=== PATIENT | female | born 1955 | race Caucasian/White ===

== ENCOUNTER 2022-03-02 14:45 | Inpatient (IN) | payer OTHER ==
[~2022-03-02] VITALS: Ht 157.5 cm; Wt 127.9 kg
[2022-03-02 16:05] LABS: HEMOGLOBIN 11.2 gm/dl (12.3-15.3); RED BLOOD COUNT 3.84 M/UL (4.00-5.10); WHITE BLOOD COUNT 4.6 K/UL (4.5-11.0)
[2022-03-02 16:30] LABS: BUN/CREATININE RATIO 22 (0-10)
[2022-03-03] MEDS ORDERED: AMLODIPINE BESYL5 MG PO (01:04)
[2022-03-03] MEDS ORDERED: INCRUSE ELLI62.5 MCG INH (01:04)
[2022-03-03] MEDS ORDERED: THEOPHYLLINE400 MG PO (01:05)
[2022-03-03] MEDS ORDERED: CETIRIZINE HCL10 MG PO (01:05)
[2022-03-03] MEDS ORDERED: METOPROLOL SUC100 MG PO (01:05)
[2022-03-03] MEDS ORDERED: MONTELUKAST SOD10 MG PO (01:06)
[2022-03-03] MEDS ORDERED: COZAAR 25MG TAB25 MG PO (01:06)
[2022-03-03] MEDS ORDERED: LEVOTHYROXINE137 MCG PO (01:07)
[2022-03-03] MEDS ORDERED: GABAPENTIN300 MG PO (01:07)
[2022-03-03] MEDS ORDERED: PROZAC 20 MG CA20 MG PO (01:08)
[2022-03-03] MEDS ORDERED: PRAVASTATIN SOD40 MG PO (01:08)
[2022-03-03] MEDS ORDERED: FENOFIBRATE160 MG PO (01:08)
[2022-03-03] MEDS ORDERED: OMEPRAZOLE40 MG PO (01:09)
[2022-03-03] MEDS ORDERED: IPRAT-ALBUT 0.5-3 ML INH (01:09)
[2022-03-03] MEDS ORDERED: NOVOLOG FL100 UNIT/1 SQ (01:10)
[2022-03-03] MEDS ORDERED: BASAGLAR K100 UNIT/1 SQ (01:10)
[2022-03-03] MEDS ORDERED: ADVAIR 500-501 EACH INH (01:11)
[2022-03-03] MEDS ORDERED: ASPIRIN CHEWABL81 MG PO (01:22)
[2022-03-03 05:44] LABS: HEMOGLOBIN 10.9 gm/dl (12.3-15.3); RED BLOOD COUNT 3.68 M/UL (4.00-5.10); WHITE BLOOD COUNT 4.4 K/UL (4.5-11.0)
[2022-03-03 06:22] LABS: BUN/CREATININE RATIO 20 (0-10)
[2022-03-04 02:06] LABS: HEMOGLOBIN 10.6 gm/dl (12.3-15.3); RED BLOOD COUNT 3.63 M/UL (4.00-5.10); WHITE BLOOD COUNT 4.3 K/UL (4.5-11.0)
[2022-03-04 02:25] LABS: BUN/CREATININE RATIO 27 (0-10)
[2022-03-06 01:54] LABS: RED BLOOD COUNT 4.16 M/UL (4.00-5.10); WHITE BLOOD COUNT 5.6 K/UL (4.5-11.0)
[2022-03-06] MEDS ORDERED: LASIX40 MG PO (16:44)
[2022-03-06] MEDS ORDERED: MEDROL DOSEPAK 24 MG PO (16:48)
== END 2022-03-06 19:57 | disposition home or self-care (01) | DRG 286 ==
LOC: ER1 14:45 → CDU 20:13 → CCU 20:13 → PROG CARE 20:13 → CCU 03-03 01:03 → PROG CARE 03-03 10:26
PROVIDERS: Internal Medicine; Physician Assistant; ADMIT Internal Medicine
PROC: 4A023N7 Measurement of Cardiac Sampling and Pressure, Left Heart, Percutaneous Approach (ICD-10-PCS; principal; 2022-03-06)
PROC: B2111ZZ Fluoroscopy of Multiple Coronary Arteries using Low Osmolar Contrast (ICD-10-PCS; 2022-03-06)
DX: I13.0 Hypertensive heart and chronic kidney disease with heart failure and stage 1 through stage 4 chronic kidney disease, or unspecified chronic kidney disease (principal); Z20.822 Contact with and (suspected) exposure to COVID-19; I50.33 Acute on chronic diastolic (congestive) heart failure; J96.21 Acute and chronic respiratory failure with hypoxia; J44.1 Chronic obstructive pulmonary disease with (acute) exacerbation; E66.2 Morbid (severe) obesity with alveolar hypoventilation; Z68.43 Body mass index [BMI] 50.0-59.9, adult; N18.9 Chronic kidney disease, unspecified; E11.22 Type 2 diabetes mellitus with diabetic chronic kidney disease; E78.5 Hyperlipidemia, unspecified; Z77.22 Contact with and (suspected) exposure to environmental tobacco smoke (acute) (chronic); I27.20 Pulmonary hypertension, unspecified; E03.9 Hypothyroidism, unspecified; D63.1 Anemia in chronic kidney disease; Z79.4 Long term (current) use of insulin; Z79.01 Long term (current) use of anticoagulants; Z79.82 Long term (current) use of aspirin; Z99.81 Dependence on supplemental oxygen; Z98.890 Other specified postprocedural states; Z82.49 Family history of ischemic heart disease and other diseases of the circulatory system; Z88.0 Allergy status to penicillin; Z90.49 Acquired absence of other specified parts of digestive tract
CPT/HCPCS: 36415; 71045; 78452; 80048; 80053; 82550; 82553; 82962; 83880; 84484; 85025; 85027; 86140; 93005; 93017; 94640; 94760; 99152; 99285; A9502; C1769; C1887; C1894; J1644; J1650; J1940; J2250; J2785; J2920; J3010; J7040; Q9967; U0002

== ENCOUNTER → 2022-06-20 | Outpatient (CLI) | payer OTHER ==
[~2022-06-20] MED LIST: ADVAIR 500-501 EACH INH; AMLODIPINE BESYL5 MG PO; ASPIRIN CHEWABL81 MG PO; BASAGLAR K100 UNIT/1 SQ; CETIRIZINE HCL10 MG PO; COZAAR 25MG TAB25 MG PO; FENOFIBRATE160 MG PO; GABAPENTIN300 MG PO; INCRUSE ELLI62.5 MCG INH; IPRAT-ALBUT 0.5-3 ML INH; LASIX40 MG PO; LEVOTHYROXINE137 MCG PO; MEDROL DOSEPAK 24 MG PO; METOPROLOL SUC100 MG PO; MONTELUKAST SOD10 MG PO; NOVOLOG FL100 UNIT/1 SQ; OMEPRAZOLE40 MG PO; PRAVASTATIN SOD40 MG PO; PROZAC 20 MG CA20 MG PO; THEOPHYLLINE400 MG PO
== END ==
LOC: HEART 5 10:44
DX: R06.02 Shortness of breath (principal); R94.2 Abnormal results of pulmonary function studies
CPT/HCPCS: 94060; 94729

== ENCOUNTER → 2022-06-20 | Outpatient (CLI) | payer OTHER | LOC: RT 12:59 | DX: J44.9 Chronic obstructive pulmonary disease, unspecified (principal); R06.02 Shortness of breath | CPT/HCPCS: 36600; 82803 ==